=== PATIENT | male | born 1985 | race Caucasian/White ===

== ENCOUNTER 2017-01-06 21:37 | Emergency (ER) | payer SELFPAY ==
[~2017-01-06] VITALS: Ht 175.3 cm; Wt 121.5 kg
[2017-01-06 21:56] VITALS: BP 142/73; PULSE 91; RESP 16; TEMP 98.2
[2017-01-06] MEDS ORDERED: PERM5CRE11 TOPICAL (22:04)
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
[2017-01-06 22:07] VITALS: BP 153/82
== END 2017-01-06 22:13 | disposition home or self-care (01) ==
LOC: PHED 21:37
DX: B86 Scabies (principal)
CPT/HCPCS: 99283

== ENCOUNTER 2017-02-22 15:10 | Emergency (ER) | payer SELFPAY ==
[~2017-02-22] VITALS: Ht 175.3 cm; Wt 122.0 kg
[~2017-02-22 15:10] MED LIST: PERM5CRE11 TOPICAL
[2017-02-22 15:13] VITALS: BP 174/97; PULSE 86; RESP 16; TEMP 97.8; O2SAT 99
--- NOTE | 2017-02-22 15:32 | PD ---
HPI Chief Complaint: Injury Time Seen by Provider: 15:25 Travel History International Travel<30 days: No Contact w/Intl Traveler<30days: No Traveled to known affect area: No History of Present Illness HPI The patient is a 31-year-old male who presents emergency department for left shoulder pain. The patient states he has a history of subluxation still left shoulder in the past, was getting out of bed earlier today when he twisted and felt like he subluxed his left shoulder. The patient states he is able to "put it back in place "but continues to have pain over the affected area. The pain is worse with movements such as extension and abduction. He has had similar symptoms in the past. He denies any tenderness of the left clavicle or left acromioclavicular joint. Pain is worsen movement, slightly alleviated at rest. He denies any numbness, tingling, or weakness of the left upper extremity. PFSH Past Medical History Hx Anticoagulant Therapy: No Diabetes: No Diminished Hearing: No Musculoskeletal: Yes (LEFT SHOULDER ISSUES) Tetanus Vaccination: Unknown Influenza Vaccination: No ?: Not Past Surgical History Surgical History: No Previous Surgery Social History Alcohol Use: No Tobacco Use: No Substance Use: No Allergies-Medications (Allergen,Severity, Reaction): Coded Allergies: No Known Allergies (Unverified , 02/22/17) Reported Meds & Prescriptions Reported Meds & Active Scripts Active Review of Systems Except as stated in HPI: all other systems reviewed are Neg HENT: No: Neck Pain Musculoskeletal: Positive: Limited ROM, Pain, No: Edema Skin: No Rash Neurologic: No: Paresthesia, Sensory Disturbance Physical Exam Narrative GENERAL: Awake, alert, pleasant 31-year-old male who appears his stated age and is in no acute respiratory distress. SKIN: Focused skin assessment warm/dry. HEAD: Atraumatic. Normocephalic. EYES: No injection or drainage. NECK: Trachea midline. No JVD. MUSCULOSKELETAL: No obvious deformities. No tenderness of the left clavicle or left acromioclavicular joint. Patient is able to extend his left upper extremity to approximately 45 and is able to abduct it to 90. He is able fully flex and extend the left hand as well as supinate and pronate the left forearm. Intrinsic hand muscles on the left are intact. Tenderness of the anterior posterior aspect of the shoulder but no obvious deformity. Positive left radial pulse. NEUROLOGICAL: Awake and alert. No obvious cranial nerve deficits. Motor grossly within normal limits. Normal speech. Sensation was intact over the median, radial, and ulnar distribution of the left upper extremity. PSYCHIATRIC: Appropriate mood and affect; insight and judgment normal. Data Data Last Documented VS Vital Signs Date Time Temp Pulse Resp B/P (MAP) Pulse Ox O2 Delivery O2 Flow Rate FiO2 02/22/17 15:13 97.8 86 16 174/97 (122) 99 Orders Orders Shoulder, Complete (>2vws) (02/22/17 15:22) Ice/Cold Pack (02/22/17 15:22) Ibuprofen (Motrin) (02/22/17 15:45) Support Splint (02/22/17 15:32) MDM Medical Decision Making Medical Screen Exam Complete: Yes Emergency Medical Condition: Yes Medical Record Reviewed: Yes Interpretation(s) X-ray left shoulder reveals negative examination of the shoulder. Differential Diagnosis Differential diagnosis includes subluxation, dislocation, contusion, hematoma, sprain, strain. Narrative Course X-ray left shoulder was obtained. The patient was administered ibuprofen for pain. The patient was provided a sling for comfort. The patient is advised to have early range of motion exercises to avoid frozen shoulder and follow-up with his primary physician, he may benefit from outpatient physical therapy evaluation and strength training of the rotator cuff muscles. The patient will be prescribed ibuprofen as needed for pain. He is stable for outpatient follow- up. Diagnosis Primary Impression: Left shoulder pain Qualified Codes: M25.512 - Pain in left shoulder Patient Instructions: General Instructions Additional Instructions: sling as needed for comfort. Early range of motion exercises to avoid frozen shoulder. Ibuprofen as directed. Follow-up with her primary physician as he may benefit from outpatient physical therapy evaluation and treatment. Please provide a patient a copy of his x-ray results at discharge. Med/Other Pt SpecificInfo: Prescription(s) given Scripts Ibuprofen (Ibuprofen) 600 Mg Tab 600 MG PO Q6H Y for Pain/Inflammation, #20 TAB 0 Refills Prov: Vitor Cabral MD 02/22/17 Disposition: 01 DISCHARGE HOME Condition: Stable Vitor Cabral MD Feb 22, 2017 15:32
[2017-02-22] MEDS ORDERED: IBUPROFEN 600 MG TAB PO ONE (15:45)
--- NOTE | 2017-02-22 16:07 | RADRPT ---
EXAM DATE/TIME: 02/22/2017 15:32 [facility] COMPARISON: No previous studies available for comparison. INDICATIONS : Left shoulder pain post getting out of bed and feeling a "pop". MEDICAL HISTORY : None. SURGICAL HISTORY : None. ENCOUNTER: Initial ACUITY: 1 day PAIN SCORE: 7/10 LOCATION: Left upper extremity FINDINGS: Multiple view examination of the left shoulder demonstrates no evidence of fracture or dislocation. The glenohumeral and acromioclavicular joints are maintained. There is normal range of motion betwee n internal and external rotation. Bony mineralization is normal. CONCLUSION: 1. Negative examination of the shoulder. Steve Marshall MD on February 22, 2017 at 16:05 Board Certified Radiologist. This report was verified electronically.
[2017-02-22] MEDS ORDERED: IBUP-232 PO (16:09)
== END 2017-02-22 16:22 | disposition home or self-care (01) ==
LOC: PHEFT 15:10
DX: M25.512 Pain in left shoulder (principal)
CPT/HCPCS: 73030; 99283

== ENCOUNTER 2017-07-02 07:57 | Emergency (ER) | payer OTHER ==
[~2017-07-02] VITALS: Ht 175.3 cm; Wt 121.4 kg
[~2017-07-02 07:57] MED LIST changes: +IBUP-232 PO; -PERM5CRE11 TOPICAL
[2017-07-02 07:59] VITALS: BP 180/86; PULSE 87; RESP 18; TEMP 97.8; O2SAT 100
--- NOTE | 2017-07-02 08:24 | PD ---
HPI . Shoulder injury Chief Complaint: Injury Time Seen by Provider: 08:18 Travel History International Travel<30 days: No Contact w/Intl Traveler<30days: No Traveled to known affect area: No History of Present Illness HPI Patient presents with a chief complaint of a left shoulder injury. Today. 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 He states that the shoulder immediately popped back in. Since that time, he has had soreness in his left shoulder. The soreness is steadily improving. He describes his discomfort as an ache and currently rates it 4/10. He states that he has not been taking anything for it. He reports that he does not like to take medications. [facility] Past Medical History Medical History: Denies Significant Hx Hx Anticoagulant Therapy: No Diabetes: No Diminished Hearing: No Musculoskeletal: Yes (LEFT SHOULDER ISSUES) Influenza Vaccination: Yes ?: Not Past Surgical History Surgical History: No Previous Surgery Social History Alcohol Use: No Tobacco Use: No Substance Use: No Allergies-Medications (Allergen,Severity, Reaction): Coded Allergies: No Known Allergies (Unverified , 07/02/17) Reported Meds & Prescriptions Reported Meds & Active Scripts Active No Active Prescriptions or Reported Medications Review of Systems Except as stated in HPI: all other systems reviewed are Neg Physical Exam Narrative GENERAL: Awake and alert and in no acute distress. SKIN: Warm and dry. HEAD: Normocephalic/atraumatic. EYES: Pupils are equal. Extraocular movements are intact. NECK: Normal range of motion. CARDIOVASCULAR: Regular rate and rhythm. RESPIRATORY: Nonlabored respirations. MUSCULOSKELETAL: Left shoulder has normal alignment. Full active and passive range of motion without difficulty. There is some mild diffuse tenderness. No point tenderness. Distally neurovascularly intact. NEUROLOGICAL: Nonfocal. PSYCHIATRIC: Appropriate mood and affect. Data Data Last Documented VS Vital Signs Date Time Temp Pulse Resp B/P (MAP) Pulse Ox O2 Delivery O2 Flow Rate FiO2 07/02/17 08:10 Room Air 07/02/17 07:59 97.8 87 18 180/86 (117) 100 Orders Orders Ed Discharge Order (07/02/17 08:19) MDM Medical Decision Making Medical Screen Exam Complete: Yes Emergency Medical Condition: Yes Differential Diagnosis Differential diagnosis of extremity trauma includes but is not limited to fracture, sprain or strain, dislocation, contusion Narrative Course This patient presents stating that his left shoulder popped out yesterday. However, it immediately popped back in. He now has full range of motion. He reports pain at the time of the incident but states that the pain has been steadily improving since that time. He does not appear to have a problem which requires any further attention in the emergency department. He will be discharged. Diagnosis Primary Impression: Left shoulder strain Qualified Codes: S46.912A - Strain of unspecified muscle, fascia and tendon at shoulder and upper arm level, left arm, initial encounter Patient Instructions: General Instructions Departure Forms: Tests/Procedures Scripts No Active Prescriptions or Reported Meds Disposition: DISCHARGE HOME Condition: Stable Annette Hardin MD July 02, 2017 08:24
== END 2017-07-02 08:37 | disposition home or self-care (01) ==
LOC: PHED 07:57
DX: S46.912A Strain of unspecified muscle, fascia and tendon at shoulder and upper arm level, left arm, initial encounter (principal); X50.9XXA Other and unspecified overexertion or strenuous movements or postures, initial encounter; Y99.0 Civilian activity done for income or pay
CPT/HCPCS: 99281

== ENCOUNTER 2017-07-07 23:06 | Emergency (ER) | payer SELFPAY ==
[~2017-07-07] VITALS: Ht 175.3 cm; Wt 119.9 kg
[2017-07-07 23:10] VITALS: BP 151/86; PULSE 86; RESP 18; TEMP 97.8; O2SAT 95
[2017-07-08] MEDS ORDERED: LIDOCAINE HCL 1% PF 10 ML VIAL INFIL ONE (01:00)
[2017-07-08] MEDS ORDERED: IBUP1TAB7 PO (01:37)
[2017-07-08] MEDS ORDERED: CEPH-460 PO (01:37)
--- NOTE | 2017-07-08 01:38 | PD ---
HPI Chief Complaint: Skin Problem Time Seen by Provider: 01:34 Travel History International Travel<30 days: No Contact w/Intl Traveler<30days: No Traveled to known affect area: No History of Present Illness HPI 31-year-old male presents to the emergency department for 2 days of progressively worsening swelling to the right thumb. Patient is right-handed. Patient denies any known injury. Patient states that he does pick on his cuticles. Patient complains of throbbing type pain that is moderate to severe. Patient is not diabetic. Patient denies other concerns or complaints. PFSH Past Medical History Narrative Medical Left shoulder issues; no tobacco use alcohol use or substance use; nursing notes reviewed Medical History: Denies Significant Hx Hx Anticoagulant Therapy: No Diabetes: No Diminished Hearing: No Musculoskeletal: Yes (LEFT SHOULDER ISSUES) Past Surgical History Surgical History: No Previous Surgery Social History Alcohol Use: No Tobacco Use: No Substance Use: No Allergies-Medications (Allergen,Severity, Reaction): Coded Allergies: No Known Allergies (Unverified , 07/07/17) Reported Meds & Prescriptions Reported Meds & Active Scripts Active Ibuprofen 800 Mg Tab 800 Mg PO Q8H PRN Keflex (Cephalexin) 500 Mg Capsule 500 Mg PO Q6H 7 Days Review of Systems Except as stated in HPI: all other systems reviewed are Neg General / Constitutional: No: Fever, Chills Musculoskeletal: Positive: Pain Skin: Positive Lumps Hematologic/Lymphatic: No: Lymph Node Enlargement Physical Exam Narrative GENERAL: Well-developed well-nourished male no acute distress no respiratory distress SKIN: Warm and dry. MUSCULOSKELETAL: No cyanosis, or edema. Attention right hand right thumb patient with marked swelling over the dorsum of the distal right thumb around the nail bed with fluctuant visible purulent collection of fluid without spontaneous drainage. Digit is neurovascular tendon intact with intact capillary refill brisk less than 2 seconds and intact flexion extension of the digit. Data Data Last Documented VS Vital Signs Date Time Temp Pulse Resp B/P (MAP) Pulse Ox O2 Delivery O2 Flow Rate FiO2 07/07/17 23:10 97.8 86 18 151/86 (107) 95 Orders Orders Lidocaine Pf 1% Inj (Xylocaine-Mpf 1% In (07/08/17 01:00) Cephalexin (Keflex) (07/08/17 01:45) Wound Care (07/08/17 01:34) Ed Discharge Order (07/08/17 01:34) [facility] Medical Decision Making Medical Screen Exam Complete: Yes Emergency Medical Condition: Yes Medical Record Reviewed: Yes Differential Diagnosis Paronychia, cellulitis, herpetic saulo Narrative Course Patient with paronychia of the right thumb; after informed verbal consent for incision and drainage site was sterilely prepped and draped and anesthetized with 1% lidocaine plain. After successful I&D of digit Polysporin dressing applied and first dose of oral antibiotic administered Patient is stable for outpatient management Procedures Procedure Narrative After the risks and benefits were discussed the following procedure was performed: INCISION AND DRAINAGE OF ABSCESS: The area was prepped and was sterilely draped. A subcutaneous wheal of 1 % Xylocaine with a total number 3 mL was used to anesthetize the area. The area was properly anesthetized. A number 11 scalpel was used to make a 1 -cm incision across the area of the abscess. The abscess was drained an irrigated with normal saline. Sterile dressing applied. Patient advised to have packing removed in two days. Diagnosis Primary Impression: Paronychia of finger Qualified Codes: L03.011 - Cellulitis of right finger Additional Impression: Encounter for incision and drainage procedure Referrals: Primary Care Physician 2 days Patient Instructions: General Instructions Med/Other Pt SpecificInfo: Prescription(s) given Scripts Ibuprofen (Ibuprofen) 800 Mg Tab 800 MG PO Q8H Y for PAIN GREATER THAN 5, #10 TAB 0 Refills Prov: Angie Valverde MD 07/08/17 Cephalexin (Keflex) 500 Mg Capsule 500 MG PO Q6H for Infection for 7 Days, #28 CAP 0 Refills Prov: Angie Valverde MD 07/08/17 Disposition: 01 DISCHARGE HOME Condition: Stable Angie Valverde MD July 08, 2017 01:38
[2017-07-08] MEDS ORDERED: CEPHALEXIN MONOHYDRATE 500 MG CAP PO ONE (01:45)
[2017-07-08 02:00] VITALS: BP 142/85; TEMP 97.8
== END 2017-07-08 02:01 | disposition home or self-care (01) ==
LOC: PHED 23:06
DX: L03.011 Cellulitis of right finger (principal)
CPT/HCPCS: 10060

== ENCOUNTER 2017-08-09 22:46 | Emergency (ER) | payer SELFPAY ==
[~2017-08-09] VITALS: Ht 162.6 cm; Wt 120.8 kg
[~2017-08-09 22:46] MED LIST changes: +CEPH-460 PO; -IBUP-232 PO; +IBUP1TAB7 PO
[2017-08-09 22:55] VITALS: BP 147/94; PULSE 82; RESP 16; TEMP 98.1; O2SAT 97
--- NOTE | 2017-08-09 23:09 | PD ---
HPI Chief Complaint: Medical Clearance Time Seen by Provider: 23:01 Travel History International Travel<30 days: No Contact w/Intl Traveler<30days: No Traveled to known affect area: No History of Present Illness HPI Is a 31-year-old male presents emerged [place] left shoulder injury over a month ago, needs clearance to go back to work. No symptoms since. No pain tenderness swelling or other associated symptoms. States gets an occasional twinge if he moves it funny, but nothing sustained. No numbness tingling or weakness. No history of previous injuries. History Past Medical History Medical History: Denies Significant Hx Influenza Vaccination: Yes Past Surgical History Surgical History: No Previous Surgery Social History Alcohol Use: No Tobacco Use: No Allergies-Medications (Allergen,Severity, Reaction): Coded Allergies: No Known Allergies (Unverified , 08/09/17) Reported Meds & Prescriptions Reported Meds & Active Scripts Active No Active Prescriptions or Reported Medications Review of Systems Except as stated in HPI: all other systems reviewed are Neg Physical Exam Narrative GENERAL: Well-appearing 31-year-old man, no acute distress. SKIN: Warm and dry. CARDIOVASCULAR: Warm and well perfused. RESPIRATORY: Normal rate and effort. MUSCULOSKELETAL: Normal exam of the left shoulder. No tenderness swelling or other abnormality. Full range of motion. No evidence of rotator cuff injury. NEUROLOGICAL: Awake and alert. No gross deficits. Data Data Last Documented VS Vital Signs Date Time Temp Pulse Resp B/P (MAP) Pulse Ox O2 Delivery O2 Flow Rate FiO2 08/09/17 22:55 98.1 82 16 147/94 (111) 97 MDM Medical Decision Making Medical Screen Exam Complete: Yes Emergency Medical Condition: Yes Differential Diagnosis Dislocation, subluxation, rotator cuff injury, contusion, other Narrative Course Medical decision making 31-year-old who presents emerged for for repeat evaluation for left shoulder pain. No symptoms now. No symptoms for over a month. Normal exam. Cleared to return to work. Diagnosis Primary Impression: Injury of left shoulder Qualified Codes: S49.92XD - Unspecified injury of left shoulder and upper arm , subsequent encounter Departure Forms: Tests/Procedures, Work Release Enter return to work date: Aug 09, 2017 Special Instructions: Patient is cleared to return to full duty. Additional Instructions: Patient is cleared to return to full duty. Med/Other Pt SpecificInfo: No Change to Meds Scripts No Active Prescriptions or Reported Meds Disposition: 01 DISCHARGE HOME Condition: Dewayne Rodriguez MD Aug 09, 2017 23:09
== END 2017-08-09 23:14 | disposition home or self-care (01) ==
LOC: PHED 22:46
DX: S49.92XA Unspecified injury of left shoulder and upper arm, initial encounter (principal); X58.XXXA Exposure to other specified factors, initial encounter
CPT/HCPCS: 99281